=== PATIENT | female | born 1960 | race Caucasian/White ===

== ENCOUNTER 2016-11-07 05:59 | Day surgery (SDC) | payer OTHER ==
[2016-10-29 16:47] LABS: ANION GAP 13 mEq/L (8-16); CALCIUM 9.2 mg/dL (8.5-10.4); CARBON DIOXIDE 20 mEq/l (22-31); CHLORIDE 108 mEq/L (97-110); CREATININE 0.8 mg/dL (0.6-1.0); GLOMERULAR FILTRATION RATE > 60; GLUCOSE 105 mg/dL (70-100); POTASSIUM 3.7 mEq/L (3.5-5.2); SODIUM 141 mEq/L (134-144)
--- NOTE | 2016-10-30 07:49 | CPEKG ---
Heart Rate: 71 RR Interval: 845 P-R Interval: 160 QRSD Interval: 86 QT Interval: 396 QTC Interval: 431 P Upton: 54 QRS Upton: 13 T Wave Upton: 35 EKG Severity - NORMAL ECG - EKG Impression: SINUS RHYTHM Electronically Signed By: Ry Espino 30-Oct-2016 17:38:58
--- NOTE | 2016-11-06 20:25 | GHP ---
[f rep st] PREOP HISTORY AND PHYSICAL DATE OF ADMISSION: 11/07/2016 DATE OF PLANNED PROCEDURE: 11/07/2016. PLANNED PROCEDURE: Hysteroscopy with morcellation of endometrial tissue. INDICATIONS: Postmenopausal bleeding. HISTORY OF PRESENT ILLNESS: Patient is a 56-year-old, 1, para 0-0-1-0, who has been postmenopausal for the last 4 years. In early September, patient began having spotting which turned into a light bright red. She had some cramping. She had a pelvic ultrasound which showed the uterus measuring 9.7 x 4.2 x 6.12 cm with an endometrial thickness of 0.85 cm. She also had 3 fibroids. One in the fundus left subserosal measuring 3.2 x 3.8 x 2.7 cm. One anterior right subserosal measuring 1.9 x 1.8 x 2.6 cm, and 1 right submucosal measuring 1 x 0.7 x 1.19 cm. Her adnexa were unremarkable. Patient presented to the office for an endometrial biopsy. We attempted to do this in the office however her cervix was stenotic, postmenopausal and her cervix was perpendicular to her vagina and she was not tolerating the process of trying to dilate the cervix. We reviewed management options to following up with biopsy in the office after Cytotec and pain management, or going to the operating room for hysteroscopy with morcellation of endometrial tissue. The patient elected to proceed with procedure in the operating room. Patient has been properly consented. PAST MEDICAL HISTORY: Significant for anxiety and mood swings, restless legs syndrome, asthma, hypertension, and alopecia, gastroesophageal reflux disease. MEDICATIONS: Citalopram, Requip, ProAir, amlodipine, Lasix, and Prilosec. SURGICAL HISTORY: Tonsillectomy and repair of left meniscus. ALLERGIES: No known drug allergies. SOCIAL HISTORY: The patient is single. 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 She denies tobacco, alcohol or drug use. FAMILY MEDICAL HISTORY: Noncontributory. 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 She has been menopausal since 54. She denies any history of any abnormal Pap smears or sexually transmitted diseases. She is a 1, para 0-0-1-0. She history of 1 spontaneous miscarriage. REVIEW OF SYSTEMS: A 10-point review of systems is negative with the exception of the above-mentioned positives. PHYSICAL EXAMINATION: VITAL SIGNS: Patient's weight is 286.2, her blood pressure was 132/80. GENERAL APPEARANCE: Alert and oriented x3. PSYCH: She has appropriate affect. HEART: Rate is regular, regular. LUNGS: Clear to auscultation bilaterally. ABDOMEN: Obese, soft, nondistended, nontender. No organomegaly is noted. EXTREMITIES: Reveal no calf tenderness or edema. PELVIC: Reveals a mobile mid position uterus, which was difficult to assess the size secondary to patient's body habitus. IMAGING STUDIES: Pelvic ultrasound was described above. ASSESSMENT AND PLAN: A 56-year-old, 1, para 0-0-1-0, who had an episode of postmenopausal bleeding and we were not able to perform an endometrial biopsy in the office. She will undergo a hysteroscopy with morcellation of endometrial tissue and to assess the lining of the uterus. Risks and benefits have been extensively reviewed with the patient, and the patient has been consented. /[id number]/MODL MTDD
[2016-11-07] MEDS ORDERED: LIDOCAINE 1% 2 ML INJ ID PRN (06:26)
[2016-11-07] MEDS ORDERED: LR 1,000 ML IV ONE (06:26)
[2016-11-07] MEDS ORDERED: LIDOCAINE 1% 2 ML INJ ONE (06:29)
[2016-11-07 06:39] VITALS: PULSE 97
[2016-11-07] MEDS ORDERED: MIDAZOLAM 2 MG/2 ML VIAL IVP ONE (07:13)
[2016-11-07] MEDS ORDERED: MIDAZOLAM 2 MG/2 ML VIAL ONE (07:13)
--- NOTE | 2016-11-07 07:15 | PDANEPAE ---
ANE Past Medical History - Cardiovascular History Hx Hypertension: Yes Hx Arrhythmias: No Hx Chest Pain: No Hx Coronary Artery / Peripheral Vascular Disease: No Hx CHF / Valvular Disease: No Hx Palpitations: No - Pulmonary History Hx COPD: No Hx Asthma/Reactive Airway Disease: Yes Hx Recent Upper Respiratory Infection: No Hx Oxygen in Use at Home: No Hx Sleep Apnea: No Sleep Apnea Screening Result - Last Documented: Positive Pulmonary History Comment: ASTHMA TRIGGERS STRESS AND COLD WEATHER - Neurologic History Hx Cerebrovascular Accident: No Hx Seizures: No Hx Dementia: No - Endocrine History Hx Diabetes: No Hypothyroid: No Hyperthyroid: No Obesity: severe - Renal History Hx Renal Disorders: Yes Renal History Comment: STRESS INCONT - Neurological & Psychiatric Hx Hx Neurological and Psychiatric Disorders: Yes Neurological / Psychiatric History Comment: PREV CONCUSSION - Cancer History Hx Cancer: No - Congenital Disorder History Hx Congenital Disorders: No - GI History Hx Gastrointestinal Disorders: Yes Gastrointestinal History Comment: BARRETTS ESOPHAGUS - Other Health History Other Health History: POST MENOPAUSAL BLEEDING. RESTLESS LEG. ALOPECIA - Chronic Pain History Chronic Pain: No - Surgical History Prior Surgeries: LT KNEE SCOPE 2006. TONSILLECTOMY ANE Review of Systems - Exercise capacity METS (RN): 3 METS ANE Patient History - Allergies Allergies/Adverse Reactions: No Known Allergies Allergy (Verified 09/06/15 13:45) - Home Medications Home Medications: Albuterol [Ventolin Hfa Inhaler] 2 puffs IH Q4 PRN 09/06/15 [Last Taken 11/07/16 ] Omeprazole [Prilosec 20 mg] 40 mg PO DAILY06 09/06/15 [Last Taken 11/07/16] rOPINIRole HCL [Requip 2mg (*)] 2 mg PO BID 09/06/15 [Last Taken 11/06/16] Amlodipine Besylate DAILY06 10/23/16 [Last Taken 11/07/16] Lasix 20 MG (*) DAILY06 10/23/16 [Last Taken 11/05/16] Potassium PRN 10/23/16 [Last Taken 11/06/16] - NPO status NPO Since - Liquids (Date): 11/07/16 NPO Since - Liquids (Time): 06:00 NPO Since - Solids (Date): 11/06/16 NPO Since - Solids (Time): 17:30 - Smoking Hx Smoking Status: Never smoked ANE Labs/Vital Signs - Labs Result Diagrams: 10/29/16 16:00 - Vital Signs Blood Pressure: 114/62 Heart Rate: 97 Respiratory Rate: 16 O2 Sat (%): 97 Height: 161.29 cm Weight: 131.542 kg ANE Physical Exam - Airway Neck exam: decreased ROM Mallampati Score: Class 2 Mouth exam: normal dental/mouth exam - Pulmonary Pulmonary: no respiratory distress - Cardiovascular Cardiovascular: regular rate and rhythym - ASA Status ASA Status: III ANE Anesthesia Plan Anesthesia Plan: general endotracheal anesthesia, GA w LMA
--- NOTE | 2016-11-07 07:18 | PDHPUP ---
History & Physical Update H&P update statement: This history and physical update is based on an assessment of the patient which was completed after admission or registration (within 24 hours), but prior to the surgery/procedure. H&P update: H&P reviewed & patient examined, no change in patient's condition since H&P completed
[2016-11-07] MEDS ORDERED: PROPOFOL/EMULSION 500 MG/50 ML BOTTLE IV ONE (07:20)
[2016-11-07] MEDS ORDERED: fentaNYL 100 MCG/2 ML INJ ONE ×2 (07:24→08:44)
[2016-11-07] MEDS ORDERED: NALOXONE HCL 0.4 MG/ML INJ IVP PRN (08:21)
[2016-11-07] MEDS ORDERED: ENALAPRILAT DIHYDRATE 1.25 MG/ML VIAL IVP PRN (08:21)
[2016-11-07] MEDS ORDERED: PROMETHAZINE HCL 25 MG/ML INJ IVP PRN (08:21)
[2016-11-07] MEDS ORDERED: ONDANSETRON 4 MG/2 ML VIAL ONE (08:36)
[2016-11-07] MEDS ORDERED: DEXAMETHASONE 4 MG/ML VIAL ONE (08:36)
[2016-11-07] MEDS ORDERED: KETOROLAC 30 MG/1 ML SDV ONE (08:36)
[2016-11-07] MEDS ORDERED: LIDOCAINE 2% 5 ML SDV ONE (08:37)
[2016-11-07] MEDS ORDERED: ROCURONIUM 100 MG/10 ML VIAL ONE (08:37)
[2016-11-07] MEDS ORDERED: HYDROmorphONE/DILAUDID 1 MG/ML SYR ONE (08:44)
[2016-11-07] MEDS: fentaNYL 100 MCG/2 ML INJ IVP PRN ×2 (08:48→09:05)
[2016-11-07] MEDS: HYDROmorphONE/DILAUDID 1 MG/ML SYR IVP PRN ×2 (08:52→09:05)
[2016-11-07] MEDS ORDERED: HYDROCODONE/APAP 5/325 TAB ONE ×2 (09:18→09:35)
[2016-11-07] MEDS: HYDROCODONE/APAP 5/325 TAB PO PRN ×2 (09:28→09:36)
[2016-11-07 09:54] VITALS: TEMP 97.7
[2016-11-07 11:22] VITALS: BP 111/75; RESP 23
[2016-11-07 11:28] VITALS: O2SAT 95
--- NOTE | 2016-11-07 14:08 | GOP ---
[f rep st] OPERATIVE REPORT DATE OF OPERATION: 11/07/2016 SURGEON: Ruthy Amaya DO ANESTHESIA: General endotracheal tube. ANESTHESIOLOGIST: Leta Acosta MD PREOPERATIVE DIAGNOSIS: Postmenopausal bleeding. POSTOPERATIVE DIAGNOSIS: Postmenopausal bleeding. PROCEDURE PERFORMED: Hysteroscopy with morcellation of endometrial tissue. FINDINGS: 1. Mobile well-suspended uterus with no adnexal masses. Difficult to assess size secondary to norman ent's body habitus. 2. Hysteroscopic findings: Thickened endometrium. Bilateral tubal ostia visualized. INDICATIONS: Patient is a 56-year-old, 1, para 0-0-1-0, who has been postmenopausal for the last 4 years. In early September, patient began spotting which turned into light, bright red bleeding a nd she had some cramping and pelvic ultrasound showed a uterus measuring 9 x 4 x 6 cm with an endome trial thickness of 0.85 cm and 3 fibroids, one of them being submucosal. We attempted to do an endo metrial biopsy in the office but her cervix was too well suspended and stenotic, so decision was mad e to proceed with a hysteroscopy with morcellation of endometrial tissue. Risks and benefits have been have been reviewed with the patient. The patient has been properly con sented. DESCRIPTION OF PROCEDURE: Patient was taken to the operating room with intravenous fluids in place. She was then placed on the operating table in the dorsal supine position where general anesthesia was obtained. She was then repositioned into the dorsal lithotomy position with [facility] and prepped and draped in normal sterile fashion. Exam under anesthesia revealed a mobile, well suspended uterus with no adnexal masses. A speculum was then placed in the patient's vagina. A sin gle-tooth tenaculum was used to grasp the anterior lip of the cervix and the cervix was then careful ly dilated to allow for the introduction of an operative hysteroscope. The hysteroscope was then introduced with fluid medium running. The endometrial cavity was explored and noted to be thickened and possibly have a posterior submucosal fibroid. The morcellator was th en introduced and frequent circumferential morcellation was performed. Specimens were sent off to P athology. Instruments were then removed from the patient's vagina. A speculum was then replaced. No bleeding was noted at the tenaculum sites. The patient was returned to the dorsal supine position where she was easily awoken from anesthesia. Sponge count was correct. The patient was transported to recovery room in stable condition. SURGEON: Dr. Monique DO. /[id number]/MODL
== END 2016-11-07 11:35 | disposition home or self-care (01) ==
LOC: FSGY 05:59
PROVIDERS: ATTEND Obstetrics & Gynecology
PROC: 0U5B8ZZ Destruction of Endometrium, Via Natural or Artificial Opening Endoscopic (ICD-10-PCS; principal; 2016-11-07 07:15)
DX: D25.2 Subserosal leiomyoma of uterus (principal); D25.0 Submucous leiomyoma of uterus; N95.0 Postmenopausal bleeding; F41.8 Other specified anxiety disorders; J45.909 Unspecified asthma, uncomplicated; I10 Essential (primary) hypertension; K21.9 Gastro-esophageal reflux disease without esophagitis; G25.81 Restless legs syndrome; L65.9 Nonscarring hair loss, unspecified
CPT/HCPCS: 58563; 93005; C1782; J1100; J1170; J1885; J2250; J2405; J2704; J3010